=== PATIENT | female | born 1990 | race Caucasian/White ===

== ENCOUNTER 2016-07-02 18:49 | Emergency (ER) | payer OTHER ==
[2016-07-02 19:01] VITALS: BP 105/63; PULSE 87; TEMP 98.5; BMI 29.9
--- NOTE | 2016-07-02 20:17 | PDOC ---
History of Present Illness - General History Source: Patient Exam Limitations: No Limitations - History of Present Illness Initial Comments: 07/02/16 20:28 The patient is a 26 year old female, with no significant past medical history who presents to the emergency department with a sore throat for 3 days difficulty breathing/SOB since yesterday. She reports having difficulty swallowing, sensation of throat closing, and also notes a nonproductive cough. She reports feeling tired and having the chills.She denies any body aches. She denies using any [id number] medication use for her symptoms. She denies any difficulty eating or any decrease in appetite. She reports her daughter is sick with somewhat similar symptoms. She denies eating any new foods or denies any previous food allergies. She denies chest pain and shortness of breath. She denies fever, headache and dizziness. She denies nausea, vomit, diarrhea and constipation. Allergies:NKA Past surgical history: x 2, DNC Social history: denies EtOH use, denies drug use, occasional tobacco use. PCP: Dr. Caitlin Candelaria <Geoffrey Flores - Last Filed: 07/02/16 20:47> <Nae Swain - Last Filed: 07/03/16 02:45> - General Chief Complaint: Cold Symptoms Stated Complaint: URI Time Seen by Provider: 07/02/16 19:13 Past History <Geoffrey Flores - Last Filed: 07/02/16 20:47> - Past Medical History Asthma: No Cancer: No Cardiac Disorders: No Diabetes: No HTN: No Seizures: No Thyroid Disease: No Other medical history: DENIES - Immunization History Immunization Up to Date: Yes - Psycho/Social/Smoking Cessation Hx Anxiety: No Suicidal Ideation: No Smoking History: Current every day smoker Have you smoked in the past 12 months: Yes Number of Cigarettes Smoked Daily: 5 Information on smoking cessation initiated: Yes Hx Alcohol Use: No Drug/Substance Use Hx: No Substance Use Type: None Hx Substance Use Treatment: No <Nae Swain - Last Filed: 07/03/16 02:45> - Past Medical History Allergies/Adverse Reactions: Allergies Allergy/AdvReac Type Severity Reaction Status Date / Time No Known Drug Allergies Allergy Verified 07/18/14 16:26 Home Medications: Ambulatory Orders Albuterol Sulfate 0.5% [Ventolin 0.5% Nebulizing Soln. -] 1 amp NEB QID PRN #20 amp 07/02/16 Prednisone [Deltasone -] 40 mg PO DAILY #20 tablet 07/02/16 Review of Systems - Review of Systems All Other Systems: Reviewed and Negative <Geoffrey Flores - Last Filed: 07/02/16 20:47> *Physical Exam - Vital Signs Last Vital Signs Temp Pulse Resp BP Pulse Ox 98.5 F 87 16 105/63 100 07/02/16 18:56 07/02/16 18:56 07/02/16 18:56 07/02/16 18:56 07/02/16 18:56 - Physical Exam Comments: 07/02/16 20:45 GENERAL: The patient is awake, alert, and fully oriented, in no acute distress. HEAD: Normal with no signs of trauma. EYES: Pupils equal, round and reactive to light, extraocular movements intact, sclera anicteric, conjunctiva clear with no pallor. ENT: Ears normal, nares patent, oropharynx clear without exudates. Moist mucous membranes. NECK: Normal range of motion, supple without lymphadenopathy, JVD, or masses. LUNGS: Inspiratory and expiratory wheezing bilaterally. HEART: Regular rate and rhythm, normal S1 and S2 without murmur or rub. ABDOMEN: Soft/nontender/nondistended. BS wnl. No guarding or rebound. No palpable masses. No hepatosplenomegaly. EXTREMITIES: Normal range of motion, no edema. No clubbing or cyanosis. No cords , erythema, or tenderness. NEUROLOGICAL: Cranial nerves II through XII grossly intact. Normal speech, normal gait. PSYCH: Normal mood, normal affect. SKIN: Warm, Dry, normal turgor, no rashes or lesions noted. <Geoffrey Flores - Last Filed: 07/02/16 20:47> - Vital Signs Last Vital Signs Temp Pulse Resp BP Pulse Ox 98.5 F 87 16 105/63 100 07/02/16 18:56 07/02/16 18:56 07/02/16 18:56 07/02/16 18:56 07/02/16 18:56 <Nae Swain - Last Filed: 07/03/16 02:45> ED Treatment Course - ADDITIONAL ORDERS Additional order review: Laboratory Results 07/02/16 19:15 Urine HCG, Qual Negative <Geoffrey Flores - Last Filed: 07/02/16 20:47> - ADDITIONAL ORDERS Additional order review: Laboratory Results 07/02/16 19:15 Urine HCG, Qual Negative <WiliamNae Espinosa - Last Filed: 07/03/16 02:45> Medical Decision Making - Medical Decision Making Documentation has been prepared under my direction and personally reviewed by me in its entirety. I attest that this documented accurately reflects all work, treatment, procedures and medical decision making performed by me. As noted above, this 26-year-old woman without previous history of asthma or other respiratory illnesses presents with 24-hour history of nonproductive cough and wheezing. Patient states that last evening, she had sensation of her throat closing followed by shortness of breath and wheezing. These symptoms have persisted throughout the day today. No history of food or drug ALLERGY. No exposure to new foods or medications in the last few days. Patient has a history of smoking but states that in recent years it's only been a few times per week. Exam as noted above has both inspiratory and expiratory wheezing. There is no evidence of/tongue/uvular edema. Because of the possible presence of airway edema, patient will have Solu-Medrol 125 mg administered intravenously. Also, DuoNeb treatment will be given. Patient markedly improved after Solu-Medrol and DuoNeb. Because of the short course of this illness, lack of fever/purulent sputum doubt bacterial infections present and no antibiotics will be prescribed. The patient has a nebulizer machine at home for her daughter who has asthma. Prescription for albuterol nebulizer ampules to be used up to 4 times a day for wheezing will be sent to the pharmacy as well as prescription for prednisone 40 mg daily for the next 4 days. Patient should return to the emergency room if she has any worsening wheezing/ shortness of breath or any persistent sensation of her throat closing. Patient's PMD is Dr. Caitlin Candelaria. She should follow-up with her within the next 5 days. <Nae Swain - Last Filed: 07/03/16 02:45> *DC/Admit/Observation/Transfer - Attestations Scribe Attestion: 07/02/16 20:27 Documentation prepared by Geoffrey Flores, acting as rn medical surgical for Nae Swain MD. <Geoffrey Flores - Last Filed: 07/02/16 20:47> <Nae Swain - Last Filed: 07/03/16 02:45> Diagnosis at time of Disposition: Hx of acute bronchitis with bronchospasm - Discharge Dispostion Disposition: HOME Condition at time of disposition: Stable - Prescriptions Prescriptions: Prednisone [Deltasone -] 40 mg PO DAILY #20 tablet Albuterol Sulfate 0.5% [Ventolin 0.5% Nebulizing Soln. -] 1 amp NEB QID PRN #20 amp PRN Reason: Wheezing - Referrals Referrals: Caitlin Candelaria MD [Primary Care Provider] - - Patient Instructions Printed Discharge Instructions: DI for Acute Bronchitis Additional Instructions: Rest; drink plenty of fluids No work tomorrow Albuterol nebulizer treatment up to 4 times a day as needed Prednisone 40 mg a day for the next 5 days Return to ER if you have wheezing/shortness of breath Follow-up with Dr. Candelaria within the next 5 days
[2016-07-02] MEDS ORDERED: ALBUTEROL SO4 2.5/IPRATROPIUM 0.5 INH SOL 3 ML VIAL.NEB. NEB ONE ×2 (20:43→20:46)
[2016-07-02] MEDS ORDERED: methylPREDNISolone NA SUCC 125 MG/2 ML VIAL IVPB ONE (20:46)
[2016-07-02] MEDS ORDERED: methylPREDNISolone NA SUCC 125 MG/2 ML VIAL ONE (20:49)
== END 2016-07-02 22:16 | disposition home or self-care (01) ==
LOC: FER 18:49
PROC: 3E0F7GC Introduction of Other Therapeutic Substance into Respiratory Tract, Via Natural or Artificial Opening (ICD-10-PCS; principal; 2016-07-02)
PROC: 3E033GC Introduction of Other Therapeutic Substance into Peripheral Vein, Percutaneous Approach (ICD-10-PCS; 2016-07-02)
DX: J20.9 Acute bronchitis, unspecified (principal); J98.01 Acute bronchospasm; F17.210 Nicotine dependence, cigarettes, uncomplicated
CPT/HCPCS: 84703; 99282-25

== ENCOUNTER 2016-11-27 11:47 | Emergency (ER) | payer OTHER ==
[2016-11-27 11:56] VITALS: BP 116/71; PULSE 74; TEMP 98; BMI 29.5
[2016-11-27] MEDS ORDERED: IBUPROFEN 600 MG TABLET (FP) PO ONE ×2 (12:07→12:12)
[2016-11-27] MEDS ORDERED: PSEUDOEPHEDRINE HCL 30 MG TABLET ONE (12:12)
--- NOTE | 2016-11-27 12:14 | PDOC ---
History of Present Illness - General Chief Complaint: Cold Symptoms Stated Complaint: COLD Time Seen by Provider: 11/27/16 11:50 - History of Present Illness Initial Comments: 11/27/16 12:10 26 yo F here no pmhx here with c/o cough nasal congestion and sore throat. no f / cno n/f no rash. 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 no mod factors. took nyquil last pm mild relief. did not take any medicine today. throat sore but tolerating liquids. Past History - Past Medical History Allergies/Adverse Reactions: Allergies Allergy/AdvReac Type Severity Reaction Status Date / Time No Known Drug Allergies Allergy Verified 11/27/16 11:49 Home Medications: Ambulatory Orders Fluticasone Propionate [Flovent Diskus] 110 mcg IH PRN PRN 11/27/16 Pseudoephedrine HCl 30 mg PO QID PRN #15 tablet MDD 3 11/27/16 Asthma: Yes Cancer: No Cardiac Disorders: No Diabetes: No HTN: No Seizures: No Thyroid Disease: No - Immunization History Immunization Up to Date: Yes - Psycho/Social/Smoking Cessation Hx Anxiety: No Suicidal Ideation: No Smoking History: Former smoker Have you smoked in the past 12 months: Yes Number of Cigarettes Smoked Daily: 5 If you are a former smoker, when did you quit?: 2 MONTHS AGO Information on smoking cessation initiated: No 'Breaking Loose' booklet given: 11/27/16 Hx Alcohol Use: No Drug/Substance Use Hx: No Substance Use Type: None Hx Substance Use Treatment: No Review of Systems - Review of Systems Constitutional: No: Chills, Diaphoresis, Fever HEENTM: Yes: Nose Congestion, Throat Pain. No: Ear Pain, Throat Swelling Respiratory: No: Shortness of Breath, Wheezing Cardiac (ROS): No: Chest Pain, Edema Musculoskeletal: No: Back Pain Integumentary: No: Bruising All Other Systems: Reviewed and Negative *Physical Exam - Vital Signs Last Vital Signs Temp Pulse Resp BP Pulse Ox 98 F 74 18 116/71 97 11/27/16 11:48 11/27/16 11:48 11/27/16 11:48 11/27/16 11:48 11/27/16 11:48 - Physical Exam General Appearance: Yes: Nourished, Appropriately Dressed HEENT: positive: TOBIN, Normal ENT Inspection, Other (clear rhinorrhea, no tonsiller exudate . cobblestoning post pharynx.) Neck: positive: Trachea midline Respiratory/Chest: positive: Lungs Clear, Normal Breath Sounds. negative: Respiratory Distress Cardiovascular: positive: Regular Rhythm, Regular Rate, S1, S2. negative: Edema , JVD Gastrointestinal/Abdominal: positive: Normal Bowel Sounds. negative: Tender Musculoskeletal: positive: Normal Inspection. negative: CVA Tenderness Extremity: positive: Normal Inspection Integumentary: positive: Normal Color, Dry, Warm Neurologic: positive: Alert, Normal Mood/Affect Medical Decision Making - Medical Decision Making 11/27/16 12:12 26 yo female with nasal congesteion and cough. sore throat. viral syndrome recommend decongestant, given work note, motrin for sore throat and dc home. *DC/Admit/Observation/Transfer Diagnosis at time of Disposition: Viral URI - Discharge Dispostion Disposition: HOME Condition at time of disposition: Improved Admit: No - Prescriptions Prescriptions: Pseudoephedrine HCl 30 mg PO QID PRN #15 tablet MDD 3 PRN Reason: Nasal Congestion - Patient Instructions Printed Discharge Instructions: DI for Viral Upper Respiratory Infection -- Adult, DI for Common Cold Additional Instructions: take Sudafed 30 mg every 6 hrs as needed for congestion. you can use flonase nasal spray as well. take ibuprofen ( motrin , or advil ) 600 mg every 8 hrs as needed for pain., take with food. drink plenty of liquids, get plenty of rest. return for any problems or concerns. follow up wtih your regular doctor as needed.
[2016-11-27] MEDS ORDERED: PSEUDOEPHEDRINE HCL 60 MG TABLET PO ONE (12:15)
== END 2016-11-27 12:25 | disposition home or self-care (01) ==
LOC: FER 11:47
DX: J06.9 Acute upper respiratory infection, unspecified (principal); B34.9 Viral infection, unspecified
CPT/HCPCS: 99282-25

== ENCOUNTER 2018-08-07 17:30 | Emergency (ER) | payer OTHER ==
--- NOTE | 2018-08-07 17:45 | PDOC ---
History of Present Illness - General History Source: Patient Exam Limitations: No Limitations - History of Present Illness Initial Comments: 08/07/18 18:05 The patient is a 28 year old female with no significant past medical history who presents to the ED with abdominal pain since earlier today. Patient reports generalized abdominal pain and chills since earlier today. She also reports generalized muscle pain in the upper and lower back, bilateral shoulders, and upper extremities. Patient states she went to sleep around 8pm last night and has been in bed all day today. She takes she took Gas-X for her abdominal pain earlier today with no relief of present symptoms. Patient states she recently had an IUD removal on 08/02/18 (IUD in place for 5 years). Patient did not receive her flu shot this year. Denies fever. Denies nasal congestion, cough. Denies change in urinary output. Denies nausea, vomiting, or diarrhea. Denies any other symptoms. 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 Patient uses E-cigarettes and THC Cartridges. <Carlos Akins - Last Filed: 08/07/18 18:05> <Pascual Miguel - Last Filed: 08/07/18 19:04> - General Chief Complaint: Pain Stated Complaint: UPPER ABDOMINAL PAIN Time Seen by Provider: 08/07/18 17:45 Past History <Carlos Akins - Last Filed: 08/07/18 18:05> - Past Medical History Asthma: Yes Cancer: No Cardiac Disorders: No Diabetes: No HTN: No Seizures: No Thyroid Disease: No - Immunization History Immunization Up to Date: Yes - Suicide/Smoking/Psychosocial Hx Smoking History: Former smoker Have you smoked in the past 12 months: Yes Number of Cigarettes Smoked Daily: 5 If you are a former smoker, when did you quit?: 2 MONTHS AGO 'Breaking Loose' booklet given: 11/27/16 Hx Alcohol Use: No Drug/Substance Use Hx: No Substance Use Type: None Hx Substance Use Treatment: No <Pascual Miguel - Last Filed: 08/07/18 19:04> - Past Medical History Allergies/Adverse Reactions: Allergies Allergy/AdvReac Type Severity Reaction Status Date / Time No Known Drug Allergies Allergy Verified 08/07/18 17:41 Home Medications: Ambulatory Orders Cholecalciferol (Vitamin D3) [Vitamin D3] 1,000 unit PO DAILY 08/07/18 Famotidine [Pepcid] 20 mg PO BID PRN #15 tablet 08/07/18 Ibuprofen 600 mg PO TID PRN #20 tablet 08/07/18 hydrOXYzine PAMOATE [Vistaril -] 25 mg PO TID PRN #15 capsule 08/07/18 Review of Systems - Review of Systems Able to Perform ROS?: Yes Comments:: 08/07/18 18:06 CONSTITUTIONAL: Absent: fever, chills, diaphoresis, generalized weakness, malaise, loss of appetite HEENT: Absent: rhinorrhea, nasal congestion, throat pain, throat swelling, difficulty swallowing, mouth swelling, ear pain, eye pain, visual Changes CARDIOVASCULAR: Absent: chest pain, syncope, palpitations, irregular heart rate, lightheadedness , peripheral edema RESPIRATORY: Absent: cough, shortness of breath, dyspnea with exertion, orthopnea, wheezing, stridor, hemoptysis GASTROINTESTINAL: + abdominal pain Absent: abdominal distension, nausea, vomiting, diarrhea, constipation, melena, hematochezia GENITOURINARY: Absent: dysuria, frequency, urgency, hesitancy, hematuria, flank pain, genital pain MUSCULOSKELETAL: + generalized muscle aches Absent: joint swelling SKIN: Absent: rash, itching, pallor HEMATOLOGIC/IMMUNOLOGIC: Absent: easy bleeding, easy bruising, lymphadenopathy, frequent infections ENDOCRINE: Absent: unexplained weight gain, unexplained weight loss, heat intolerance, cold intolerance NEUROLOGIC: Absent: headache, focal weakness or paresthesias, dizziness, unsteady gait, seizure, mental status changes, bladder or bowel incontinence PSYCHIATRIC: Absent: anxiety, depression, suicidal or homicidal ideation, hallucinations. All Other Systems: Reviewed and Negative <Carlos Akins - Last Filed: 08/07/18 18:05> *Physical Exam - Vital Signs Last Vital Signs Temp Pulse Resp BP Pulse Ox 99.0 F 99 H 16 111/71 99 08/07/18 17:41 08/07/18 17:41 08/07/18 17:41 08/07/18 17:41 08/07/18 17:41 - Physical Exam Comments: 08/07/18 18:06 GENERAL: Well developed, well nourished. Awake and alert. No acute distress. HEENT: Normocephalic, atraumatic. PERRLA, EOMI. No conjunctival pallor. Sclera are non- icteric. Moist mucous membranes. Oropharynx is clear. NECK: Supple. Full ROM. No JVD. Carotid pulses 2+ and symmetric, without bruits. No thyromegaly. No lymphadenopathy. CARDIOVASCULAR: Regular rate and rhythm. No murmurs, rubs, or gallops. Distal pulses are 2+ and symmetric. PULMONARY: No evidence of respiratory distress. Lungs clear to auscultation bilaterally. No wheezing, rales or rhonchi. ABDOMINAL: Soft. Non-tender. Non-distended. No rebound or guarding. No organomegaly. Normoactive bowel sounds. MUSCULOSKELETAL Normal range of motion at all joints. No bony deformities or tenderness. No CVA tenderness. EXTREMITIES: No cyanosis. No clubbing. No edema. No calf tenderness. SKIN: Warm and dry. Normal capillary refill. No rashes. No jaundice. NEUROLOGICAL: Alert, awake, appropriate. Cranial nerves 2-12 intact. No deficits to light touch and temperature in face, upper extremities and lower extremities. No motor deficits in the in face, upper extremities and lower extremities. Normoreflexic in the upper and lower extremities. Normal speech. Toes are down- going bilaterally. Gait is normal without ataxia. PSYCHIATRIC: Cooperative. Good eye contact. Appropriate mood and affect. <Carlos Akins - Last Filed: 08/07/18 18:05> Moderate Sedation - Procedure Monitoring Vital Signs: Procedure Monitoring Vital Signs Temperature 99.0 F 08/07/18 17:41 Pulse Rate 99 H 08/07/18 17:41 Respiratory Rate 16 08/07/18 17:41 Blood Pressure 111/71 08/07/18 17:41 O2 Sat by Pulse Oximetry (%) 99 08/07/18 17:41 <Carlos Akins - Last Filed: 08/07/18 18:05> ED Treatment Course - LABORATORY CBC & Chemistry Diagram: 08/07/18 18:10 08/07/18 18:10 <Pascual Miguel - Last Filed: 08/07/18 19:04> Medical Decision Making - Medical Decision Making 08/07/18 18:01 Patient presents with generalized body aches, myalgias, chills, but no URI symptoms, sore throat, cough, nausea, vomiting, or diarrhea. 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 She did not get a flu immunization. Her examination is notable for no abdominal tenderness to palpation, no distention, normal bowel sounds. HEENT and chest clear. This is likely influenza. Fluids, analgesics, and observation. 08/07/18 19:03 CBC, chemistries, and urinalysis without significant abnormalities Patient feels much better, myalgias have resolved. No further fever or chills. Discharged with family to follow-up as directed. <Pascual Miguel - Last Filed: 08/07/18 19:04> *DC/Admit/Observation/Transfer - Attestations Scribe Attestion: 08/07/18 18:06 Documentation prepared by Carlos Akins, acting as medical logistics specialist for Pascual Bergman MD <Carlos Akins - Last Filed: 08/07/18 18:05> - Discharge Dispostion Decision to Admit order: No <Pascual Miguel - Last Filed: 08/07/18 19:04> Diagnosis at time of Disposition: Viral syndrome - Discharge Dispostion Disposition: HOME Condition at time of disposition: Improved - Prescriptions Prescriptions: Famotidine [Pepcid] 20 mg PO BID PRN #15 tablet PRN Reason: abdominal pain hydrOXYzine PAMOATE [Vistaril -] 25 mg PO TID PRN #15 capsule PRN Reason: muscle aches, agitation Ibuprofen 600 mg PO TID PRN #20 tablet PRN Reason: fever, chills, muscle aches - Referrals Referrals: Caitlin Candelaria MD [Primary Care Provider] - 2 Days - Patient Instructions Printed Discharge Instructions: DI for Viral Syndrome - Post Discharge Activity Forms/Work/School Notes: Back to Work
[2018-08-07 17:52] VITALS: BP 111/71; PULSE 99; TEMP 99; BMI 29.9
[2018-08-07 17:55] LABS: URINE APPEARANCE Clear; URINE BILIRUBIN Negative (NEGATIVE); URINE COLOR Yellow; URINE GLUCOSE (UA) Negative (NEGATIVE); URINE KETONE Negative (NEGATIVE); URINE LEUK ESTERASE Negative (NEGATIVE); URINE NITRITE Negative (NEGATIVE); URINE PROTEIN Negative (NEGATIVE); URINE UROBILINOGEN 0.2 (0.2-1.0)
[2018-08-07 18:01] LABS: HCG,QUALITATIVE URINE Negative
[2018-08-07] MEDS ORDERED: SODIUM CHLORIDE 1,000 ML IV STA (18:04)
[2018-08-07] MEDS ORDERED: KETOROLAC TROMETHAMINE 30 MG/1 ML VIAL IVPUSH ONE (18:04)
[2018-08-07] MEDS ORDERED: KETOROLAC TROMETHAMINE 30 MG/1 ML VIAL ONE (18:26)
[2018-08-07 18:27] LABS: BASO % 0.4 % (0-2.0); EOS % 0.6 % (0-4.5); HEMATOCRIT 41.8 % (32.4-45.2); HEMOGLOBIN 13.8 GM/dl (10.7-15.3); LYMPH % 6.9 % (8-40); MCH 29.5 pg (25.7-33.7); MCHC 32.9 g/dl (32.0-36.0); MEAN CELL VOLUME 89.7 fl (80-96); MEAN PLT VOLUME 8.9 fl (7.5-11.1); MONO % 2.8 % (3.8-10.2); NEUT % 89.3 % (42.8-82.8); PLATELET COUNT 318 K/MM3 (134-434); RBC 4.66 M/mm3 (3.60-5.2); RDW 13.1 % (11.6-15.6); WHITE BLOOD COUNT 9.8 K/mm3 (4.0-10.8)
[2018-08-07 18:39] LABS: ALBUMIN 3.8 g/dl (3.4-5.0); ALK PHOS 86 U/L (45-117); ANION GAP 8 MMOL/L (8-16); BILIRUBIN,TOTAL 0.6 mg/dl (0.2-1); BLOOD UREA NITROGEN 10 mg/dl (7-18); CALCIUM 9.3 mg/dl (8.5-10); CHLORIDE 103 mmol/L (98-107); CO2 22 mmol/L (21-32); CREATININE 0.8 mg/dl (0.55-1.3); GLUCOSE,RANDOM 94 mg/dl (74-106); POTASSIUM 4.1 mmol/L (3.5-5.1); SGOT/AST 22 U/L (15-37); SGPT/ALT 23 U/L (13-61); SODIUM 133 mmol/L (136-145); TOT PROT 6.8 g/dl (6.4-8.2)
== END 2018-08-07 19:11 | disposition home or self-care (01) ==
LOC: FER 17:30
PROC: 3E033GC Introduction of Other Therapeutic Substance into Peripheral Vein, Percutaneous Approach (ICD-10-PCS; principal; 2018-08-07)
PROC: 3E0333Z Introduction of Anti-inflammatory into Peripheral Vein, Percutaneous Approach (ICD-10-PCS; 2018-08-07)
PROC: 3E0337Z Introduction of Electrolytic and Water Balance Substance into Peripheral Vein, Percutaneous Approach (ICD-10-PCS; 2018-08-07)
DX: B34.9 Viral infection, unspecified (principal); Z87.891 Personal history of nicotine dependence
CPT/HCPCS: 36415; 80053; 81003; 84703; 85025; 99282-25; J7030

== ENCOUNTER 2019-06-18 21:15 | Emergency (ER) | payer OTHER ==
[2019-06-18 21:28] VITALS: BP 116/64; PULSE 129; TEMP 100.7; BMI 33.9
[2019-06-18] MEDS ORDERED: DEXTROSE 5%-LACTATED RINGERS 1,000 ML IV SCH (23:00)
[2019-06-18 23:21] LABS: URINE APPEARANCE TURBID; URINE BILIRUBIN NEGATIVE (NEGATIVE); URINE COLOR YELLOW; URINE GLUCOSE (UA) NEGATIVE (NEGATIVE); URINE KETONE TRACE (NEGATIVE); URINE LEUK ESTERASE NEGATIVE (NEGATIVE); URINE NITRITE NEGATIVE (NEGATIVE); URINE PROTEIN NEGATIVE (NEGATIVE); URINE UROBILINOGEN 0.2 mg/dL (0.2-1.0)
[2019-06-19] MEDS ORDERED: DEXTROSE 5%-LACTATED RINGERS 1,000 ML IV SCH
[2019-06-19] MEDS ORDERED: ACETAMINOPHEN 325 MG TABLET (FP) ONE (00:13)
[2019-06-19] MEDS ORDERED: CEFAZOLIN 2 GM/D5W 2 GM/50 ML ML IVPB ONE ×2 (01:08→01:30)
[2019-06-19] MEDS ORDERED: ACETAMINOPHEN 325 MG TABLET (FP) PO ONE (01:30)
[2019-06-19 01:57] LABS: BASO % 0.2 % (0-2.0); EOS % 0.1 % (0-4.5); HEMATOCRIT 27.1 % (32.4-45.2); HEMOGLOBIN 8.8 GM/dL (10.7-15.3); LYMPH % 8.8 % (8-40); MCH 27.7 pg (25.7-33.7); MCHC 32.6 g/dl (32.0-36.0); MEAN CELL VOLUME 85.1 fl (80-96); MEAN PLT VOLUME 9.2 fl (7.5-11.1); MONO % 7.3 % (3.8-10.2); NEUT % 83.6 % (42.8-82.8); PLATELET COUNT 227 K/MM3 (134-434); RBC 3.18 M/mm3 (3.60-5.2); RDW 13.7 % (11.6-15.6); WHITE BLOOD COUNT 8.6 K/mm3 (4.0-10.0)
== END 2019-06-19 02:50 | disposition home or self-care (01) ==
LOC: JER 21:15
DX: Z53.21 Procedure and treatment not carried out due to patient leaving prior to being seen by health care provider (principal)
CPT/HCPCS: 36415; 81003; 85025; 87804; 99281-25

== ENCOUNTER 2019-06-21 00:12 | Emergency (ER) | payer OTHER ==
[2019-06-21 00:44] VITALS: BP 112/63; PULSE 101; TEMP 98.2; BMI 34.3
--- NOTE | 2019-06-21 01:02 | PDOC ---
Attending Attestation - Resident Resident Name: Jenny Taith - ED Attending Attestation I have performed the following: I have examined & evaluated the patient, The case was reviewed & discussed with the resident, I agree w/resident's findings & plan, Exceptions are as noted - HPI HPI: 06/21/19 01:01 29-year-old female who is 21 weeks went to L&D [facility] but was sent back to the emergency department because she has had several days of flulike symptoms persistent cough and subjective fevers and chills - Physicial Exam PE: 06/21/19 01:01 Well-nourished well-developed 29-year-old female presents with a productive cough, rhinorrhea, nasal congestion Head normocephalic atraumatic Neck is supple Neck nares positive for rhinorrhea Lungs no wheezes no crackles CVS regular rate rhythm S1-S2 Abdomen is protuberant Skin is warm and dry Neuro alert and oriented x3, ambulating with ease - Medical Decision Making 06/21/19 01:02 Patient was seen in the emergency department 2 days ago with upper respiratory infection fever nasal congestion and cough Influenza swab was negative CBC showed a normal white count Urinalysis was negative 06/21/19 01:03 06/21/19 01:[address] 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
--- NOTE | 2019-06-21 01:09 | PDOC ---
History of Present Illness - General Chief Complaint: Cold Symptoms Stated Complaint: FLU-LIKE SYMPTOMS/ 31 WEEKS Time Seen by Provider: 06/21/19 00:49 - History of Present Illness Initial Comments: HPI: 29yo A3 currently 31 weeks F presenting with cough. Patient was evaluated in this hospital about two days ago and returns today because her cough has worsened. She had a reassuring evaluation by L&D at that time and was hydrated with fluids. Patient has taken tylenol at home for her fever but was not prescribed anything for her cough. No urinary symptoms. Reports fevers, chills, muscle aches, and coughing PCP: Dr. Caitlin Candelaria solar energy technician: Dr. Jacinto ROS: Constitutional: +fever, +chills HEENT: no throat pain, no dysphagia Cardiovascular: no chest pain, no palpitations Respiratory: +cough, no shortness of breath Gastrointestinal: no abdominal pain, no nausea Genitourinary: no dysuria, no hematuria Musculoskeletal: +myalgia, no arthralgia Skin: no rash, no itching Neurologic: no headache, no weakness PE: General: Awake, alert, and fully oriented, in no acute distress Head: No signs of trauma Eyes: EOMI, sclera anicteric ENT: Moist mucus membranes Neck: Normal ROM, supple Lungs: Lungs clear, Normal breath sounds Cardio: Regular rhythm, S1 and S2 present Abdomen: Soft, nontender. No guarding, no rebound, no masses Extremities: Normal range of motion, Distal pulses present, No calf tenderness SKIN: Warm, Dry, normal turgor Neurologic: Cranial nerves II through XII grossly intact. Normal speech ED Course/MDM: DDX including but not limited to viral illness including influenza, pneumonia, PE Flu test 06/21/19 01:08 Dr. Whittington discussed case with Dr. Lea who recommended Robitussin for patients with cough 06/21/19 01:11 Laboratory Tests 06/21/19 01:16 Influenza A (Rapid) Negative Influenza B (Rapid) Positive A Patient is of sound mind and has capacity to make decisions. Benefits/risks explained to patient and they voiced understanding. Recommended monitoring in the L&D unit and patient refused. Cough has improved with robitussin Return precautions given Patient stable for discharge 06/22/19 08:45 Past History - Past Medical History Allergies/Adverse Reactions: Allergies Allergy/AdvReac Type Severity Reaction Status Date / Time No Known Drug Allergies Allergy Verified 06/21/19 00:43 Home Medications: Ambulatory Orders Bupropion HCl [Wellbutrin -] 75 mg PO DAILY 06/21/19 Ferrous Sulfate 325 mg PO BID 06/21/19 Guaifenesin [Robitussin] 200 mg PO Q4H PRN #1 bottle 06/21/19 Pnv 67/Iron Ps/Folate No.1/Dha [Vitafol Ultra Softgel] 1 each PO DAILY 06/21/19 Asthma: Yes Cancer: No Cardiac Disorders: No COPD: No Diabetes: No HTN: No Seizures: No Thyroid Disease: No - Reproductive History (#): 4 Para: 2 Spontaneous : 2 - Immunization History Immunization Up to Date: Yes - Psycho Social/Smoking Cessation Hx Smoking History: Never smoked Have you smoked in the past 12 months: No Number of Cigarettes Smoked Daily: 5 If you are a former smoker, when did you quit?: 2 MONTHS AGO 'Breaking Loose' booklet given: 11/27/16 Hx Alcohol Use: No Drug/Substance Use Hx: No Substance Use Type: None Hx Substance Use Treatment: No *Physical Exam - Vital Signs Last Vital Signs Temp Pulse Resp BP Pulse Ox 98.2 F 101 H 20 112/63 99 06/21/19 00:15 06/21/19 00:15 06/21/19 00:15 06/21/19 00:15 06/21/19 00:15 Discharge - Discharge Information Problems reviewed: Yes Clinical Impression/Diagnosis: Bronchitis Condition: Stable Disposition: HOME - Additional Discharge Information Prescriptions: Guaifenesin [Robitussin] 200 mg PO Q4H PRN #1 bottle PRN Reason: Cough - Follow up/Referral Referrals: Caitlin Candelaria MD [Primary Care Provider] - - Patient Discharge Instructions Patient Printed Discharge Instructions: DI for Acute Bronchitis Additional Instructions: You came into the emergency department with cough during . Flu test today was positive. Your history and physical exam was consistent with a viral illness for which supportive care is indicated. Rest, drink lots of fluids: Teas, water, soups, Pedialyte Humidified air, steamy showers, saltwater gargles can help break up mucus Lots of handwashing and good hygiene Continue [id number] medications for symptomatic relief: Tylenol for fever/pain Robitussin: Immediate-release tablet: 200 to 400 mg every 4 hours as needed; maximum: 2,400 mg/24 hours Continue taking home medications as prescribed. Follow-up with your campus dean to to discuss this ED visit and to further evaluate your symptoms. Your workup is not complete until you do so. Call and make an appointment. Immediate medical attention is required if you have: any chest pain, palpitations, shortness of breath, severe headaches, changes in vision, episodes of fainting, focal numbness or weakness, any severe abdominal pain, any black tarry stool, or any new or concerning symptoms. If you think you are having an emergency, call for emergency medical services or present to the emergency department right away. - Post Discharge Activity
[2019-06-21] MEDS ORDERED: guaiFENesin 200 MG/10 ML 10 ML UNIT-DOSE CUPS PO ONE (01:12)
[2019-06-21] MEDS ORDERED: guaiFENesin 200 MG/10 ML 10 ML UNIT-DOSE CUPS ONE (01:19)
== END 2019-06-21 02:37 | disposition home or self-care (01) ==
LOC: JER 00:12
DX: O99.89 Other specified diseases and conditions complicating pregnancy, childbirth and the puerperium (principal); J10.1 Influenza due to other identified influenza virus with other respiratory manifestations; Z3A.31 31 weeks gestation of pregnancy
CPT/HCPCS: 87804; 99281-25

== ENCOUNTER 2021-06-20 14:00 | Emergency (ER) | payer OTHER ==
[2021-06-20 14:31] VITALS: BP 130/83; PULSE 100; TEMP 98.7; BMI 30.2
[2021-06-21 23:07] LABS: SARS-CoV-2 NAA Detected (Not Detected)
== END 2021-06-20 14:35 | disposition home or self-care (01) ==
LOC: FER 14:00
DX: U07.1 COVID-19 (principal); R05.1 Acute cough; J02.9 Acute pharyngitis, unspecified
CPT/HCPCS: 99283-25; C9803; U0003; U0005

== ENCOUNTER 2023-05-12 12:54 | Emergency (ER) | payer OTHER ==
[2023-05-12] MEDS ORDERED: ALBUTEROL SO4 2.5/IPRATROPIUM 0.5 INH SOL 3 ML VIAL.NEB. NEB ONE ×2 (13:11→13:36)
[2023-05-12 13:28] VITALS: BP 112/74; PULSE 96; RESP 16; TEMP 98.7; BMI 34.3
[2023-05-12] MEDS ORDERED: AZITHROMYCIN 500 MG TABLET PO ONE (14:14)
== END 2023-05-12 15:03 | disposition home or self-care (01) ==
LOC: FER 12:54
PROC: 3E0F7GC Introduction of Other Therapeutic Substance into Respiratory Tract, Via Natural or Artificial Opening (ICD-10-PCS; principal; 2023-05-12)
DX: R05.9 Cough, unspecified (principal); R06.02 Shortness of breath; R09.3 Abnormal sputum; Z20.822 Contact with and (suspected) exposure to COVID-19
CPT/HCPCS: 0241U-QW; 71046-TC-FY; 99284-25

== ENCOUNTER 2023-08-01 23:01 | Emergency (ER) | payer OTHER ==
[2023-08-01 23:09] VITALS: BP 110/71; PULSE 118; RESP 18; TEMP 100.9; BMI 32.3
[2023-08-01] MEDS ORDERED: KETOROLAC TROMETHAMINE 30 MG/1 ML VIAL IM ONE (23:10)
[2023-08-01] MEDS ORDERED: DEXAMETHASONE SOD PHOSPHATE 10 MG/1 ML VIAL IM ONE (23:11)
[2023-08-01] MEDS ORDERED: KETOROLAC TROMETHAMINE 30 MG/1 ML VIAL ONE (23:14)
[2023-08-01] MEDS ORDERED: DEXAMETHASONE SOD PHOSPHATE 10 MG/1 ML VIAL ONE (23:14)
== END 2023-08-01 23:36 | disposition home or self-care (01) ==
LOC: FER 23:01
PROC: 3E0233Z Introduction of Anti-inflammatory into Muscle, Percutaneous Approach (ICD-10-PCS; principal; 2023-08-01)
PROC: 3E023GC Introduction of Other Therapeutic Substance into Muscle, Percutaneous Approach (ICD-10-PCS; 2023-08-01)
DX: R50.9 Fever, unspecified (principal); R05.9 Cough, unspecified; R11.0 Nausea; J02.9 Acute pharyngitis, unspecified; Z20.822 Contact with and (suspected) exposure to COVID-19
CPT/HCPCS: 0241U-QW; 87651; 99284-25; J1100